=== PATIENT | female | born 1975 | race Two or more races ===

== ENCOUNTER 2020-02-03 06:26 | Day surgery (SDC) | payer BC ==
[~2020-02-03] VITALS: Ht 167.6 cm; Wt 98.4 kg
[2020-02-03 07:21] LABS: CLARITY URINE CLEAR (CLEAR); COLOR URINE YELLOW (YELLOW); KETONES URINE NEGATIVE (NEGATIVE); LEUKOCYTE ESTERASE URINE TRACE (NEGATIVE); NITRITE URINE NEGATIVE (NEGATIVE); OCCULT BLOOD URINE NEGATIVE (NEGATIVE); PROTEIN URINE NEGATIVE (NEGATIVE); SPECIFIC GRAVITY URINE 1.014 (1.005-1.030)
[2020-02-03] MEDS ORDERED: VASOPRESSIN 20 UNIT/ML 1ML ONE (07:22)
[2020-02-03 07:26] LABS: UCG SCREEN NEGATIVE
[2020-02-03 07:38] LABS: CHLORIDE 106 mEq/L (98-107)
[2020-02-03 07:45] LABS: PROTHROMBIN TIME 10.5 sec (9.6-11.0)
[2020-02-03] MEDS ORDERED: LACTATED RINGERS 1,000 ML IV SCH (08:00)
[2020-02-03 08:13] LABS: BASOPHILS % 1.3 % (0.0-2.0); EOSINOPHILS % 5.8 % (0.0-5.0); LYMPHOCYTES % 32.5 % (20.0-50.0); MEAN CORPUSCULAR HEMOGLOBIN 24.7 pg (28.0-32.0); MEAN CORPUSCULAR VOLUME 76.1 fL (81.0-99.0); MEAN PLATELET VOLUME 9.2 fl (7.4-10.4); MONOCYTES % 8.1 % (2.0-8.0); NEUTROPHILS % 52.3 % (40.0-76.0); PLATELET 180 x1000/uL (130-400); RED BLOOD CELL COUNT 5.26 mill/uL (4.2-5.4); RED CELL DISTRIBUTION WIDTH 16.5 % (11.6-14.6)
[2020-02-03] MEDS ORDERED: ACETAMINOPHEN 500MG TABLET ONE (08:24)
[2020-02-03] MEDS ORDERED: PROPOFOL 200MG/20ML VIAL IV ONE (08:43)
[2020-02-03] MEDS ORDERED: MIDAZOLAM HCL 2 MG/2 ML VIAL ONE (08:43)
[2020-02-03] MEDS ORDERED: CEFAZOLIN SODIUM 1000MG/VIAL ONE (09:00)
[2020-02-03] MEDS ORDERED: ONDANSETRON HCL 4MG/2ML INJ ONE (09:00)
[2020-02-03] MEDS ORDERED: DEXAMETHASONE 4MG/ML 1ML VIAL ONE (09:01)
[2020-02-03] MEDS ORDERED: METOCLOPRAMIDE HCL 10MG/2ML VIAL ONE (09:01)
[2020-02-03] MEDS ORDERED: FENTANYL CITRATE/PF 50MCG/ML 2ML VIAL ONE ×2 (09:03→10:08)
[2020-02-03] MEDS ORDERED: HYDROMORPHONE HCL/PF 2MG/ML CPJ IV PRN (09:30)
[2020-02-03] MEDS ORDERED: DIPHENHYDRAMINE 50MG/ML VIAL IV PRN (09:45)
[2020-02-03] MEDS ORDERED: FUROSEMIDE 40MG/4ML VIAL ONE (10:17)
== END 2020-02-03 12:45 | disposition home or self-care (01) ==
LOC: OR 06:26
PROVIDERS: ATTEND Obstetrics & Gynecology Obstetrics
DX: D25.9 Leiomyoma of uterus, unspecified (principal); I10 Essential (primary) hypertension; Z79.899 Other long term (current) drug therapy; Z98.890 Other specified postprocedural states
CPT/HCPCS: 36415; 58561; 80048; 81003; 81025; 85025; 85610; 85730; 88304; J0690; J1100; J1940; J2250; J2405; J2704; J2765; J3010; J3490; J7030

== ENCOUNTER → 2020-02-03 | Outpatient (CLI) | payer BC ==
[~2020-02-03] MED LIST: ALBU90AE INH; CYCL10TA7 PO; DIPH25CA83 PO; FLOV44 INH; IBUP-2029 PO
== END | disposition home or self-care (01) ==
LOC: LAB 06:45
PROVIDERS: ATTEND Obstetrics & Gynecology Obstetrics
DX: Z01.812 Encounter for preprocedural laboratory examination (principal); Z20.828 Contact with and (suspected) exposure to other viral communicable diseases
CPT/HCPCS: 87426